=== PATIENT | male | born 1960 | race American Indian/Alaskan Native ===

== ENCOUNTER 2017-07-01 21:22 | Emergency (ER) | payer OTHER ==
[2017-07-01 21:50] VITALS: BP 139/99
[2017-07-02] MEDS ORDERED: FLEXERIL PO ONE (01:02)
[2017-07-02] MEDS ORDERED: TORADOL IM ONE (01:02)
[2017-07-02] MEDS ORDERED: TORADOL ONE (01:03)
[2017-07-02] MEDS ORDERED: FLEXERIL ONE (01:03)
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
== END 2017-07-02 02:35 | disposition home or self-care (01) ==
LOC: ED 21:22
DX: M54.2 Cervicalgia (principal); M54.5 Low back pain; I10 Essential (primary) hypertension; V43.52XA Car driver injured in collision with other type car in traffic accident, initial encounter; Y93.89 Activity, other specified; Y92.89 Other specified places as the place of occurrence of the external cause; Y99.8 Other external cause status
CPT/HCPCS: 70360; 96372; 99283; J1885